=== PATIENT | male | born 1990 | race Hispanic/Latino ===

== ENCOUNTER 2018-11-09 23:55 | Emergency (ER) | payer SELFPAY ==
--- NOTE | 2018-11-10 07:46 | RAD ---
LEFT FOOT 3 VIEWS: Date: 11/10/18 INDICATION: Metal plaque fell on patient's left foot with pain. IMPRESSION: There is soft tissue swelling overlying the dorsal aspect of the forefoot. Lisfranc alignment is pres erved. No displaced fracture is evident. POS: [facility]
== END 2018-11-10 01:34 | disposition home or self-care (01) ==
LOC: ERS 23:55
DX: S90.32XA Contusion of left foot, initial encounter (principal); W20.8XXA Other cause of strike by thrown, projected or falling object, initial encounter

== ENCOUNTER 2022-10-13 11:27 | Inpatient (IN) | payer OTHER, SELFPAY ==
[2022-10-13] MEDS ORDERED: Boostrix 0.5 ML (Tdap) VIAL (>/=7 yrs of age) ONE (11:38)
[2022-10-13] MEDS ORDERED: Ketorolac Tromethamine 30 MG/ML VIAL ONE (11:38)
[2022-10-13] MEDS ORDERED: Iopamidol-370 76% 500 ML MDV (1 ML CHARGE) ONE (12:11)
[2022-10-13] MEDS ORDERED: Morphine 4 MG/ML VIAL ONE (12:35)
[2022-10-13 12:57] LABS: #Eosinphils 0.1 thou/uL (0.0-0.7); #Monocytes 0.7 thou/uL (0.11-0.59); #Neutrophils 7.8 thou/uL (1.40-6.50); %Basophils 0.2 % (0.0-1.0); %Eosinophils 1.1 % (0.0-10.0); %Lymphocytes 18.2 % (21.0-51.0); %Monocytes 6.4 % (0.0-10.0); %Neutrophils 73.5 % (42.0-75.0); Mean Corpuscular HGB CONC 33.9 g/dL (32.0-36.0); Mean Corpuscular Hemoglobin 30.5 pg (27.0-31.0); Mean Platelet Volume 9.4 fL (7.4-10.4); Platelet Count 269 10x3/uL (130-400); RBC Distribution Width 13.3 % (11.5-14.5); Red Blood Cell (RBC) Count 4.59 mill/uL (4.70-6.10); White Blood Cell (WBC) Count 10.6 10x3/uL (4.8-10.8)
[2022-10-13 13:31] LABS: ALT (SGPT) 99 U/L (8-55); AST (SGOT) 70 U/L (5-34); Albumin 4.2 g/dL (3.5-5.0); Alkaline Phosphatase 95 U/L (40-110); Anion Gap 15 mmol/L (10-20); BUN (Urea Nitrogen) 13 mg/dL (8.9-20.6); Bilirubin, Total 1.4 mg/dL (0.2-1.2); CK (CPK) 2922 U/L (30-200); Calc. Creatinine Clearance 0 mL/min (70-130); Calcium 9.1 mg/dL (7.8-10.44); Carbon Dioxide 22 mmol/L (22-29); Chloride 104 mmol/L (98-107); Estimated GFR 109; Globulin 3.3 g/dL (2.4-3.5); Glucose 125 mg/dL (70-105); Potassium 3.8 mmol/L (3.5-5.1); Protein, Total 7.5 g/dL (6.0-8.3); Sodium 137 mmol/L (136-145)
[2022-10-13] MEDS ORDERED: Ondansetron PF 4 MG/2 ML Vial IVP PRN (14:06)
[2022-10-13] MEDS ORDERED: Ipratropium/Albuterol 3 ML NEB NEB PRN (14:06)
[2022-10-13] MEDS ORDERED: Morphine 2 MG/ML VIAL SLOW IVP PRN (14:06)
[2022-10-13] MEDS ORDERED: Sodium Chloride 0.9% 1,000 ML IV SCH (14:15)
[2022-10-13] MEDS: Acetaminophen 500 MG TAB PO SCH ×2 (16:13→20:56)
[2022-10-13] MEDS: Gabapentin 300 MG CAP PO SCH ×2 (16:13→20:56)
[2022-10-13] MEDS: Sodium Chloride 0.9% 1,000 ML IV SCH ×2 (16:16→20:57)
[2022-10-13 16:52] VITALS: BMI 31.4
[2022-10-13] MEDS: traMADol HCl 50 MG TAB PO SCH ×2 (17:57→23:24)
[2022-10-13] MEDS: traMADol HCl 50 MG TAB PO PRN (17:57)
[2022-10-13] MEDS: Famotidine/PF 20 mg/2ml Vial SLOW IVP SCH (20:56)
[2022-10-13] MEDS: Senokot S 8.6-50 MG TAB PO SCH (20:57)
[2022-10-14] MEDS: Sodium Chloride 0.9% 1,000 ML IV SCH ×2 (01:35→05:45)
[2022-10-14] MEDS: Acetaminophen 500 MG TAB PO SCH ×4 (03:46→20:59)
[2022-10-14] MEDS: traMADol HCl 50 MG TAB PO SCH ×4 (05:45→23:59)
[2022-10-14 05:49] LABS: #Eosinphils 0.1 thou/uL (0.0-0.7); #Monocytes 0.7 thou/uL (0.11-0.59); #Neutrophils 7.1 thou/uL (1.40-6.50); %Basophils 0.1 % (0.0-1.0); %Eosinophils 1.4 % (0.0-10.0); %Lymphocytes 14.6 % (21.0-51.0); %Monocytes 7.5 % (0.0-10.0); Hemoglobin 12.2 g/dL (14.0-18.0); Mean Corpuscular HGB CONC 33.4 g/dL (32.0-36.0); Mean Corpuscular Hemoglobin 30.6 pg (27.0-31.0); Mean Corpuscular Volume 91.5 fl (78.0-98.0); Mean Platelet Volume 9.3 fL (7.4-10.4); Platelet Count 215 10x3/uL (130-400); RBC Distribution Width 13.3 % (11.5-14.5); Red Blood Cell (RBC) Count 3.99 mill/uL (4.70-6.10); White Blood Cell (WBC) Count 9.4 10x3/uL (4.8-10.8)
[2022-10-14 06:03] LABS: PTT 39.3 sec (22.9-36.1); Prothrombin Time 13.9 sec (12.0-14.7)
[2022-10-14 06:13] LABS: Anion Gap 12 mmol/L (10-20); BUN (Urea Nitrogen) 8 mg/dL (8.9-20.6); CK (CPK) 1493 U/L (30-200); Calc. Creatinine Clearance 175 mL/min (70-130); Calcium 8.7 mg/dL (7.8-10.44); Carbon Dioxide 22 mmol/L (22-29); Chloride 107 mmol/L (98-107); Estimated GFR 124; Glucose 105 mg/dL (70-105); Potassium 4.1 mmol/L (3.5-5.1); Sodium 137 mmol/L (136-145)
[2022-10-14] MEDS: Polyethylene Glycol 3350 17 GM Packet PO SCH (08:26)
[2022-10-14] MEDS: Lisinopril 10 MG TAB PO SCH (08:26)
[2022-10-14] MEDS: Gabapentin 300 MG CAP PO SCH ×3 (08:26→20:59)
[2022-10-14] MEDS: Senokot S 8.6-50 MG TAB PO SCH ×2 (08:27→20:59)
[2022-10-14] MEDS: Famotidine/PF 20 mg/2ml Vial SLOW IVP SCH ×2 (08:27→21:01)
[2022-10-14] MEDS: traMADol HCl 50 MG TAB PO PRN ×2 (12:15→18:32)
[2022-10-14] MEDS: Ketorolac Tromethamine 30 MG/ML VIAL IVP SCH ×3 (12:16→23:19)
[2022-10-14] MEDS: Cyclobenzaprine 10 MG TAB PO PRN ×2 (12:16→21:00)
[2022-10-14] MEDS: Ipratropium/Albuterol 3 ML NEB NEB SCH ×2 (13:10→19:00)
[2022-10-15] MEDS: Acetaminophen 500 MG TAB PO SCH ×3 (03:10→14:41)
[2022-10-15] MEDS: Ketorolac Tromethamine 30 MG/ML VIAL IVP SCH ×2 (05:11→12:44)
[2022-10-15] MEDS: traMADol HCl 50 MG TAB PO SCH ×2 (05:58→12:44)
[2022-10-15] MEDS: Ipratropium/Albuterol 3 ML NEB NEB SCH ×2 (07:23→12:54)
[2022-10-15 07:43] VITALS: TEMP 98.1
[2022-10-15] MEDS: Lisinopril 10 MG TAB PO SCH (09:46)
[2022-10-15] MEDS: Gabapentin 300 MG CAP PO SCH ×2 (09:47→14:41)
[2022-10-15] MEDS: Polyethylene Glycol 3350 17 GM Packet PO SCH (09:47)
[2022-10-15] MEDS: Senokot S 8.6-50 MG TAB PO SCH (09:47)
[2022-10-15] MEDS: Famotidine/PF 20 mg/2ml Vial SLOW IVP SCH (09:47)
[2022-10-15 12:08] VITALS: BP 142/81
== END 2022-10-15 15:58 | disposition home or self-care (01) | DRG 964 ==
LOC: ERS 11:27 → SURG A 15:21
PROVIDERS: ADMIT Specialist; ATTEND Specialist
PROC: 5A09357 Assistance with Respiratory Ventilation, Less than 24 Consecutive Hours, Continuous Positive Airway Pressure (ICD-10-PCS; principal; 2022-10-14)
DX: S27.1XXA Traumatic hemothorax, initial encounter (principal); J90 Pleural effusion, not elsewhere classified; T79.6XXA Traumatic ischemia of muscle, initial encounter; S22.42XA Multiple fractures of ribs, left side, initial encounter for closed fracture; S22.089A Unspecified fracture of T11-T12 vertebra, initial encounter for closed fracture; Z98.890 Other specified postprocedural states; V89.1XXA Person injured in unspecified nonmotor-vehicle accident, nontraffic, initial encounter; Y92.89 Other specified places as the place of occurrence of the external cause
CPT/HCPCS: 36415; 36416; 71045; 71046; 71260; 72128; 72131; 80048; 80053; 82550; 83605; 84484; 85025; 85610; 85730; 86850; 86900; 86901; 90471; 90715; 93005; 93010; 93306; 94640; 94660; 94760; 96361; 96374; 96375; J1885; J2270; J7050; J7620; Q9967; S0028

== ENCOUNTER 2022-10-19 23:57 | Emergency (ER) | payer SELFPAY ==
[2022-10-20 01:14] LABS: #Eosinphils 0.2 thou/uL (0.0-0.7); #Monocytes 0.6 thou/uL (0.11-0.59); #Neutrophils 5.6 thou/uL (1.40-6.50); %Basophils 0.3 % (0.0-1.0); %Eosinophils 2.7 % (0.0-10.0); %Lymphocytes 24.8 % (21.0-51.0); %Monocytes 6.5 % (0.0-10.0); %Neutrophils 64.9 % (42.0-75.0); Hemoglobin 15.2 g/dL (14.0-18.0); Mean Corpuscular HGB CONC 33.8 g/dL (32.0-36.0); Mean Corpuscular Volume 88.9 fl (78.0-98.0); Mean Platelet Volume 8.6 fL (7.4-10.4); Platelet Count 503 10x3/uL (130-400); RBC Distribution Width 12.6 % (11.5-14.5); Red Blood Cell (RBC) Count 5.06 mill/uL (4.70-6.10); White Blood Cell (WBC) Count 8.6 10x3/uL (4.8-10.8)
[2022-10-20 01:38] LABS: ALT (SGPT) 71 U/L (8-55); AST (SGOT) 33 U/L (5-34); Albumin 4.5 g/dL (3.5-5.0); Alkaline Phosphatase 133 U/L (40-110); Anion Gap 14 mmol/L (10-20); BUN (Urea Nitrogen) 13 mg/dL (8.9-20.6); Bilirubin, Total 0.6 mg/dL (0.2-1.2); Calc. Creatinine Clearance 0 mL/min (70-130); Calcium 10.6 mg/dL (7.8-10.44); Carbon Dioxide 28 mmol/L (22-29); Chloride 98 mmol/L (98-107); Estimated GFR 119; Globulin 4.3 g/dL (2.4-3.5); Glucose 105 mg/dL (70-105); Lipase 22 U/L (8-78); Potassium 4.7 mmol/L (3.5-5.1); Protein, Total 8.8 g/dL (6.0-8.3); Sodium 135 mmol/L (136-145)
[2022-10-20] MEDS ORDERED: Morphine 4 MG/ML VIAL ONE (06:52)
[2022-10-20] MEDS ORDERED: Iopamidol-370 76% 500 ML MDV (1 ML CHARGE) ONE (09:23)
== END 2022-10-20 07:57 | disposition home or self-care (01) ==
LOC: EDBD → ERS 23:57
DX: S22.32XA Fracture of one rib, left side, initial encounter for closed fracture (principal); J90 Pleural effusion, not elsewhere classified; X58.XXXA Exposure to other specified factors, initial encounter
CPT/HCPCS: 36415; 71045; 74177; 80053; 83690; 84484; 85025; 93005; 96374; J2270; Q9967

== ENCOUNTER 2022-12-09 06:19 | Emergency (ER) | payer OTHER, SELFPAY ==
[2022-12-09] MEDS ORDERED: Diazepam 5 MG TAB ONE (07:24)
[2022-12-09] MEDS ORDERED: Ketorolac Tromethamine 30 MG/ML VIAL ONE (07:24)
[2022-12-09 08:01] LABS: Bacteria/HPF None Seen HPF (None Seen); Bilirubin Negative (Negative); Blood, Urine Negative (Negative); CAUTI Indications for Culture Dysuria,urgency,freq; Calcium Oxalate Crystals Rare HPF (None Seen); Clarity Clear (Clear); Glucose, Urine (Dipstick) Normal (Negative); Ketone, Urine Negative (Negative); Leukocyte Negative Leu/uL (Negative); Nitrite Negative (Negative); Protein, Urine (Dipstick) 10 mg/dL (Neg-Trace); RBC/HPF 0-3 HPF (0-3); Specific Gravity, Urine 1.028 (1.002-1.036); Squamous Epithelial None Seen HPF (0-3); Urobilinogen Normal mg/dL (Less than 2); WBC/HPF 0-3 HPF (0-3); pH, Urine 5.5 (5.0-9.0)
[2022-12-09 08:03] LABS: Urine Culture Reflex No No
== END 2022-12-09 11:53 | disposition home or self-care (01) ==
LOC: ERS 06:19
DX: J18.9 Pneumonia, unspecified organism (principal); R07.81 Pleurodynia; I10 Essential (primary) hypertension; E11.9 Type 2 diabetes mellitus without complications; E78.5 Hyperlipidemia, unspecified; Z79.899 Other long term (current) drug therapy
CPT/HCPCS: 36415; 71045; 81001; 85379; 96372; J1885